=== PATIENT | female | born 1985 | race Caucasian/White ===

== ENCOUNTER 2020-12-07 10:53 | Emergency (ER) | payer OTHER, SELFPAY ==
--- NOTE | 2020-12-07 10:59 | ED.GENADULT ---
HPI - General Adult General Chief complaint: Skin/Abscess/Foreign Body Stated complaint: Extremity Injury, Upper Time Seen by Provider: 12/07/20 10:59 Source: patient Mode of arrival: ambulatory Limitations: no limitations History of Present Illness HPI narrative: 35-year-old female patient presents to the [facility] with complaints of right middle finger pain and wound. Patient states that she was helping a friend move yesterday and states that her friend got bit by a spider and this morning about 3 AM she woke up with some pain to the finger and noticed some swelling and pain to the right middle finger. Patient states that she did tried to squeeze it this morning but nothing really came out. Patient states she has had a little bit of joint pain but not sure if that is associated with helping her friend move yesterday. Denies any fevers or chills. Patient denies taking anything for this pain Related Data Allergies Allergy/AdvReac Type Severity Reaction Status Date / Time No Known Allergies Allergy Verified 12/07/20 11:26 Review of Systems Review of Systems: Narrative: CONSTITUTIONAL: Denies fever, chills, or sweats. EYES: Denies visual changes, redness, or discharge. ENT: Denies rhinorrhea, congestion, sore throat, or otalgia. CARDIOVASCULAR: Denies chest pain, palpitations, or edema. RESPIRATORY: Denies cough or dyspnea. GASTROINTESTINAL: Denies abdominal pain, nausea, vomiting, or diarrhea. GENITOURINARY: Denies dysuria or hematuria. SKIN: Denies rash or itching. Positive wound right middle finger since 3 AM this morning MUSCULOSKELETAL: Denies back pain, joint pain, or myalgia. NEUROLOGIC: Denies headache, numbness, or weakness. PSYCHIATRIC: Denies anxiety or depression. PMFSH Past Medical History Medical History (Updated 12/07/20 @ 11:38 by IVORY Ivy) No significant past medical history Social History Social History (Updated 12/07/20 @ 11:00 by IVORY Ivy) Smoking status: Current every day smoker Comments At the time of my signature I agree with nursing past medical history, surgical, social, and family history. There is no relevant family history pertinent to the presenting complaint. Exam Narrative: Exam Narrative: GENERAL: Well-appearing, well-nourished, and in no acute distress. HEAD: Normocephalic, atraumatic. EYES: PERRLA and EOMI. ENT: Nares clear, no rhinorrhea or epistaxis. Mucous membranes moist. NECK: Supple. No lymphadenopathy CHEST: Clear to auscultation. No respiratory distress. HEART: Regular rate and rhythm. No murmur heard. Normal peripheral pulses. ABDOMEN: Soft, nontender, nondistended, normal active bowel sounds. EXTREMITIES: Normal range of motion. No edema. SKIN: Warm, dry, no rash. Patient does have a small wound noted to the lateral side of the right middle finger to the distal tip of the right middle finger. Measuring approximately 0.5 cm. There is a punctate wound with some scabbing noted to the middle of it with some surrounding erythema. Slight warmth noted. A little bit of swelling noted to the tip of the finger. Patient does have excellent range of motion to the finger and the joint area. NEURO: No focal deficits. Alert and oriented x3. Course Vital Signs Vital signs: Vital Signs Temperature 37.6 C 12/07/20 11:09 Pulse Rate 83 12/07/20 11:09 Respiratory Rate 16 12/07/20 11:09 Blood Pressure 145/85 H 12/07/20 11:09 Pulse Oximetry 99 12/07/20 11:09 Temperature 37.6 C 12/07/20 11:09 Pulse Rate 83 12/07/20 11:09 Respiratory Rate 16 12/07/20 11:09 Blood Pressure 145/85 H 12/07/20 11:09 Pulse Oximetry 99 12/07/20 11:09 Vital signs reviewed The patient has been informed that they may have pre-hypertension or Hypertension based on a BP reading in the department. I recommend that the patient call the primary care provider listed on their discharge instructions or a physician of their choice this week to arrange follow up
[2020-12-07 11:09] VITALS: BP 145/85; PULSE 83; RESP 16; TEMP 37.6; O2SAT 99
== END 2020-12-07 11:43 | disposition home or self-care (01) ==
PROVIDERS: Emergency Provider Nurse Practitioner Family
DX: S60.462A Insect bite (nonvenomous) of right middle finger, initial encounter (principal); W57.XXXA Bitten or stung by nonvenomous insect and other nonvenomous arthropods, initial encounter; F17.200 Nicotine dependence, unspecified, uncomplicated
CPT/HCPCS: 99213; G0463

== ENCOUNTER 2021-04-17 11:34 | Emergency (ER) | payer OTHER, SELFPAY ==
--- NOTE | 2021-04-17 11:41 | ED.SKABFB ---
HPI - Skin/Abscess/Foreign Bdy General Chief complaint: Skin/Abscess/Foreign Body Stated complaint: Tic bites to body Time Seen by Provider: 04/17/21 11:42 Source: patient and RN notes reviewed History of Present Illness HPI narrative: Patient is a 35-year-old female who presents the urgent care with complaints of multiple tick bites on her body. Patient states that she went camping from Thursday to Thursday and had picked off multiple ticks over the weekend. Patient states she did not notice any others on Thursday. States that they have been very angry and became more itchy and red over the last couple days. Patient states she has not been putting anything on them for the itch. However reports of feeling sluggish and fatigued today. Denies of any body aches, fever, nausea, vomiting. No other acute complaints. No acute distress noted. Patient aware the plan of care. Some parts of this dictation were generated by voice recognition software and may contain typographical and/or grammatical inaccuracies. Related Data Home Medications Medication Instructions Recorded Confirmed No Home Medications 04/17/21 04/17/21 Allergies Allergy/AdvReac Type Severity Reaction Status Date / Time No Known Allergies Allergy Verified 04/17/21 12:01 Review of Systems Review of Systems: Narrative: CONSTITUTIONAL: Denies fever, chills, or sweats. EYES: Denies visual changes, redness, or discharge. ENT: Denies rhinorrhea, congestion, sore throat, or otalgia. CARDIOVASCULAR: Denies chest pain, palpitations, or edema. RESPIRATORY: Denies cough or dyspnea. GASTROINTESTINAL: Denies abdominal pain, nausea, vomiting, or diarrhea. GENITOURINARY: Denies dysuria or hematuria. SKIN: Reports of multiple itchy tick bites to the body MUSCULOSKELETAL: Denies back pain, joint pain, or myalgia. NEUROLOGIC: Denies headache, numbness, or weakness. All other systems reviewed are negative, except as documented in HPI. [facility] Past Medical History Medical History (Updated 04/17/21 @ 12:05 by IVORY Munoz) No significant past medical history Social History Social History (Updated 12/07/20 @ 11:00 by IVORY Ivy) Smoking status: Current every day smoker Comments At the time of my signature, I reviewed and agree with the nursing past medical, surgical, social, and family history. There is no relevant family history pertinent to the patient complaint. Exam Narrative: Exam Narrative: GENERAL: This is a well-nourished, well-developed patient, in no apparent distress. HEAD: normocephalic, atraumatic. EYES: PERRL. Sclera clear/white. Vision is grossly intact. EARS: External ears normal NOSE: External nose normal with no obvious nasal discharge, nares without redness, no rhinorrhea. THROAT: Mucous membranes moist, posterior pharynx clear. NECK: Neck supple, non-tender without lymphadenopathy CARDIOVASCULAR: Regular rate and rhythm without murmurs, gallops, or rubs. RESPIRATORY: Clear to auscultation. Breath sounds equal bilaterally. No wheezes, rales, or rhonchi. SKIN: Multiple bug bites noted to the right shoulder, mid back, right arm, and left upper arm. No obvious bull's-eye rash however appears to be the start of an area to the right shoulder with erythemic surrounding and pinpoint center. NEURO: awake, alert, and oriented to person, place and time. There were no obvious focal neurologic abnormalities. EXTREMITIES: No clubbing, cyanosis, or edema. Course Vital Signs Vital signs: Vital Signs Temperature 98.4 F 04/17/21 11:45 Pulse Rate 78 04/17/21 11:45 Respiratory Rate 16 04/17/21 11:45 Blood Pressure 154/118 H 04/17/21 11:45 Pulse Oximetry 100 04/17/21 11:45 Temperature 98.4 F 04/17/21 11:45 Pulse Rate 78 04/17/21 11:45 Respiratory Rate 16 04/17/21 11:45 Blood Pressure 154/118 H 04/17/21 11:45 Pulse Oximetry 100 04/17/21 11:45 Reviewed-patient is informed that they may have pre-hypertension or
[2021-04-17 11:45] VITALS: BP 154/118; PULSE 78; RESP 16; TEMP 36.9; O2SAT 100
[2021-04-17 12:00] VITALS: BP 140/90
== END 2021-04-17 12:10 | disposition home or self-care (01) ==
PROVIDERS: Emergency Provider Nurse Practitioner Family
DX: S40.261A Insect bite (nonvenomous) of right shoulder, initial encounter (principal); S20.469A Insect bite (nonvenomous) of unspecified back wall of thorax, initial encounter; S40.861A Insect bite (nonvenomous) of right upper arm, initial encounter; S40.862A Insect bite (nonvenomous) of left upper arm, initial encounter; W57.XXXA Bitten or stung by nonvenomous insect and other nonvenomous arthropods, initial encounter
CPT/HCPCS: 99213; G0463

== ENCOUNTER 2021-10-18 16:26 | Emergency (ER) | payer OTHER, SELFPAY ==
[2021-10-18 16:34] VITALS: BP 154/95; PULSE 85; RESP 16; TEMP 36.9; O2SAT 100
--- NOTE | 2021-10-18 17:01 | ED.URI ---
HPI - URI/Sore Throat General Chief Complaint: Upper Respiratory Infection Stated Complaint: cough Time Seen by Provider: 10/18/21 16:55 Source: patient, RN notes reviewed and old records reviewed Mode of arrival: ambulatory Limitations: no limitations and language barrier History of Present Illness HPI Narrative: 36 year old male presets to express care with complaints of hacking cough, sore throat nasal drainage with nasal congestion, fatigue, and headache since Thursday. Patient states that she has had some yellow sputum when she coughs at times. Patient states that she took a COVID test on Thursday that was negative, he has had COVID vaccination.Patient has taken Tylenol and some Tessalon Perles for her cough. MD elicited complaint: cough, sore throat, rhinorrhea, nasal congestion and other (fatigue, headache) Associated symptoms: rash (nated for COVID) Related Data Allergies Allergy/AdvReac Type Severity Reaction Status Date / Time No Known Allergies Allergy Verified 10/18/21 16:46 Review of Systems Review of Systems: CONSTITUTIONAL: Denies fever, chills, or sweats. EYES: Denies visual changes, redness, or discharge. ENT: positive for clear rhinorrhea, congestion, no sore throat, or otalgia. CARDIOVASCULAR: Denies chest pain, palpitations, or edema. RESPIRATORY: Positive some harsh cough denies dyspnea. GASTROINTESTINAL: Denies abdominal pain, nausea, vomiting, or diarrhea. GENITOURINARY: Denies dysuria or hematuria. SKIN: Denies rash or itching. MUSCULOSKELETAL: Denies back pain, joint pain, or myalgia. NEUROLOGIC: Positive headache,no numbness, or weakness. PSYCHIATRIC: Denies anxiety or depression. All systems reviewed & are unremarkable except as noted in HPI and below PMFSH Past Medical History Medical History (Updated 10/20/21 @ 16:16 by Shira Strong NP) Strep throat Surgical History Surgical History (Updated 10/20/21 @ 16:15 by Shira Strong NP) No history of previous surgery Family History Family History (Updated 10/18/21 @ 17:04 by Shira Strong NP) Other Family history non-contributory Social History Social History (Updated 10/20/21 @ 16:12 by Shira Strong NP) Smoking status: Current some day smoker Alcohol intake: current Alcohol use details: social Substance use: never Living arrangements: with family Gender identity (if verbalized by the patient): Female Comments At time of signature, agree with nursing past medical, surgical, social and family history. There is no relevant family history pertinent to the presenting complaint Exam Narrative: GENERAL: Well-appearing, well-nourished, and in no acute distress. HEAD: Normocephalic, atraumatic. EYES: PERRLA and EOMI. ENT: Nares red with clear rhinorrhea no epistaxis. Mucous membranes moist.TM's normal with good light reflex, throat red with painful swallowing, no lesion or exudates, no acute tonsil swelling. NECK: Supple. no lymphadenopathy CHEST: Clear to auscultation. No respiratory distress.[id number] on room air harsh cough HEART: Regular rate and rhythm. No murmur heard. Normal peripheral pulses. ABDOMEN: Soft, nontender, nondistended, normal active bowel sounds. EXTREMITIES: Normal range of motion. No edema. SKIN: Warm, dry, no rash. NEURO: No focal deficits. Alert and oriented x3. Course Vital Signs Vital signs: Vital Signs Temperature 36.9 C 10/18/21 16:34 Pulse Rate 85 10/18/21 16:34 Respiratory Rate 16 10/18/21 16:34 Blood Pressure 154/95 H 10/18/21 16:34 Pulse Oximetry 100 10/18/21 16:34 Temperature 36.9 C 10/18/21 16:34 Pulse Rate 85 10/18/21 16:34 Respiratory Rate 16 10/18/21 16:34 Blood Pressure 154/95 H 10/18/21 16:34 Pulse Oximetry 100 10/18/21 16:34 MDM - URI/Sore Throat Differential Diagnosis Differential diagnosis: Likely upper respiratory infection, pharyngitis and other (acute cough) Medical Records Attestation: I reviewed the patient's
== END 2021-10-18 17:20 | disposition home or self-care (01) ==
PROVIDERS: Emergency Provider Registered Nurse
DX: J06.9 Acute upper respiratory infection, unspecified (principal); F17.200 Nicotine dependence, unspecified, uncomplicated; Z20.822 Contact with and (suspected) exposure to COVID-19
CPT/HCPCS: 87081; 87426; 87880; 99213; C9803; G0463

== ENCOUNTER 2022-10-31 08:23 | Emergency (ER) | payer OTHER, SELFPAY ==
--- NOTE | 2022-10-31 08:31 | ED.URI ---
HPI - URI/Sore Throat General Chief Complaint: Upper Respiratory Infection Stated Complaint: chest tight Time Seen by Provider: 10/31/22 08:32 Source: patient and RN notes reviewed History of Present Illness HPI Narrative: Patient is a 37-year-old female who presents to urgent care with complaints of a cough since Thursday. Patient also reports body aches, sore throat, congestion and fever. States that her son has had positive contact with influenza and he has been ill since Thursday. Patient has been taking Mucinex. States that it is starting to hurt with deep breathing. No other acute complaints. No acute distress noted. Patient aware of plan care. Some parts of this dictation were generated by voice recognition software and may contain typographical and/or grammatical inaccuracies. Related Data Allergies Allergy/AdvReac Type Severity Reaction Status Date / Time No Known Allergies Allergy Verified 10/31/22 08:44 Review of Systems Review of Systems: CONSTITUTIONAL: Reports of fever fatigue EYES: Denies visual changes, redness, or discharge. ENT: reports nasal congestion, sore throat postnasal drainage CARDIOVASCULAR: Denies chest pain, palpitations, or edema. RESPIRATORY: reports a persistent cough with chest congestion GASTROINTESTINAL: Denies abdominal pain, nausea, vomiting, or diarrhea. GENITOURINARY: Denies dysuria or hematuria. SKIN: Denies rash or itching. MUSCULOSKELETAL: Denies back pain, joint pain. Reports bodyaches NEUROLOGIC: Denies headache, numbness, or weakness. All other systems reviewed are negative, except as documented in HPI. [facility] Past Medical History Medical History (Updated 10/31/22 @ 08:49 by IVORY Munoz) Strep throat Surgical History Surgical History (Updated 10/20/21 @ 16:15 by Shira Strong NP) No history of previous surgery Family History Family History (Updated 10/18/21 @ 17:04 by Shira Strong NP) Other Family history non-contributory Social History Social History (Updated 10/20/21 @ 16:12 by Shira Strong NP) Smoking status: Current some day smoker Alcohol intake: current Alcohol use details: social Substance use: never Gender identity (if verbalized by the patient): Female Comments At the time of my signature, I reviewed and agree with the nursing past medical, surgical, social, and family history. There is no relevant family history pertinent to the patient complaint. Exam Narrative: GENERAL: This is a well-nourished, well-developed patient, in no apparent distress. HEAD: normocephalic, atraumatic. EYES: PERRL. Sclera clear/white. Vision is grossly intact. EARS: External ears normal, auditory canals clear and without drainage, TMs normal without perforation. Hearing grossly intact. NOSE: External nose normal with no obvious nasal discharge, nares without redness, no rhinorrhea. THROAT: Mucous membranes moist, posterior pharynx clear. moderate postnasal drainage NECK: Neck supple, non-tender without lymphadenopathy CARDIOVASCULAR: Regular rate and rhythm without murmurs, gallops, or rubs. RESPIRATORY: persistent harsh cough noted on exam.Clear to auscultation. Breath sounds equal bilaterally. No wheezes, rales, or rhonchi. SKIN: warm, intact with no suspicious lesions or rash, good texture and turgor. NEURO: awake, alert, and oriented to person, place and time. There were no obvious focal neurologic abnormalities. EXTREMITIES: No clubbing, cyanosis, or edema. Course Course Level of Care: Express Care Visit Vital Signs Vital signs: Vital Signs Temperature 98.3 F 10/31/22 08:38 Pulse Rate 104 H 10/31/22 08:38 Respiratory Rate 20 10/31/22 08:38 Blood Pressure 142/86 H 10/31/22 08:38 Pulse Oximetry 100 10/31/22 08:38 Oxygen Delivery Room Air 10/31/22 08:38 Temperature 98.3 F 10/31/22 08:38 Pulse Rate 104 H 10/31/22 08:38 Respiratory Rate 20 10/31/22 08:38 Blood Pressure 142/8
[2022-10-31 08:38] VITALS: BP 142/86; PULSE 104; RESP 20; TEMP 36.8; O2SAT 100
== END 2022-10-31 08:53 | disposition home or self-care (01) ==
PROVIDERS: Emergency Provider Nurse Practitioner Family
DX: J06.9 Acute upper respiratory infection, unspecified (principal); F17.200 Nicotine dependence, unspecified, uncomplicated
CPT/HCPCS: 99213; G0463